=== PATIENT | female | born 1990 | race Caucasian/White ===

== ENCOUNTER 2016-03-16 17:30 | Emergency (ER) | payer OTHER ==
[~2016-03-16] VITALS: Ht 162.6 cm; Wt 83.5 kg
[~2016-03-16 17:30] MED LIST: ADVIL200 MG PO; ALBUTEROL0.09 MG/A1 INH; ALBUTEROL2.5 MG/3 M INH/SOL; BENTYL10 M1 PO; FLONASE120 SPRAY/ NASB; MASON NATURAL325 MG PO; NEBULIZER MACHINE INH; PREDNISONE 10MG10 MG PO; PREDNISONE 20MG20 MG PO; PRENATAL TABLE1 EAC2 PO; PRENATAL1 TA1 PO; ROBITUSSIN AC SY5 ML PO; VICODIN 5-3001 EACH PO; ZITHROMAX Z-PA250 M1 PO; ZOFRAN4 M2 PO; ZYRTEC10 MG PO; nebulizer machine INH
--- NOTE | 2016-03-16 19:08 | ED NECK/BACK PAIN COMPLAINT ---
History of Present Illness General Chief Complaint: Low Back Pain/Injury Stated Complaint: LOWER BACK PAIN Source: patient Exam Limitations: no limitations Vital Signs & Intake/Output Vital Signs & Intake/Output Vital Signs Date Time Temp Pulse Resp B/P Pulse O2 O2 Flow FiO2 Ox Delivery Rate 03/16 2127 98.6 88 18 126/68 100 Room Air 03/16 2039 97.8 03/16 1805 97.8 92 18 128/67 100 Room Air ED Intake and Output 03/17 0000 03/16 1200 Intake Total Output Total Balance Patient 184 lb Weight Allergies Coded Allergies: shellfish derived (Severe, ANAPHYLAXIS 01/17/16) Reconcile Medications Albuterol Sulfate (Albuterol Sulfate Hfa) 90 MCG HFA.AER.AD 2 PUFF INH Q4-6 PRN PRN SHORTNESS OF BREATH (Reported) 90 MCG PER PUFF Albuterol Sulfate 2.5 MG/3 ML (0.083 %) VIAL.NEB 1 Vial INH/HILARIO Q4P PRN asthma attack Vit No.130/Iron/FA ( Tablet) 27 MG IRON-800 MCG TABLET 1 TAB PO DAILY (Reported) Triage Note: PT TO ED FOR LOWER BACK PAIN, WORSE WITH MOVEMENT, PT CURRENTLY 15 WEEKS PREG, DENIES ANY VAG BLEEDING OR DISCHARGE. UNSURE OF ANY INJURY, NO LOSS OF B/B. Triage Nurses Notes Reviewed? yes Onset: Gradual Duration: day(s): (2) Timing: no prior history Quality/Severity: moderate Location: lumbar spine, paraspinous muscles Radiation: none Context: turning/bending Method of Injury: unknown Loss of Consciousness: no loss of consciousness Modifying Factors: immobilization, movement : Yes Patient currently breastfeeds: No HPI: Patient is a 25-year-old female who is currently 15 weeks presenting to the emergency Department chief complaint of low back pain is worse with movement. Pain started about 1-1/2-2 days ago. 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 Denies any nausea or vomiting fevers or chills chest pain or shortness of breath. No abdominal pain. No urinary frequency urgency or dysuria. Denies any vaginal discharge or bleeding. Her last visit with her SENIOR RADIATION THERAPIST was yesterday and everything was fine. (BOBBY JEREZ,SHAWN) Past History Travel History Traveled to [place] past 21 day No Medical History Any Pertinent Medical History? 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 No (SHAWN HER) Review of Systems Review of Systems Constitutional: Reports: no symptoms. Comments Review of systems: See HPI, All other systems negative. Constitutional, no chills fever or weight loss HEENT: No visual changes no sore throat no congestion Cardiovascular: No chest pain ,palpitation , orthopnea or ankle swelling Skin, no jaundice no rashes Respiratory: No dyspnea cough sputum or hemoptysis GI: No nausea no vomiting : No dysuria No hematuria Muscle skeletal: no neck pain, Neurologic: No numbness no confusion Psych: No stress anxiety Immunology: No splenectomy or history of AIDS (SHAWN HER) Physical Exam Physical Exam General Appearance: well developed/nourished, no apparent distress, alert, awake , comfortable Neck: normal inspection, supple, full range of motion Comments: Well-developed well-nourished person in no acute distress HEENT: Pupils equally round and reactive to light and accommodation. Nose is atraumatic. Neck: Supple, no lymphadenopathy, normal range of motion without pain or tenderness, no C-spine tenderness. Back: No CVA tenderness bilaterally. Tender to palpation in the lumbar paraspinal region. Limited range of motion of the back with forward flexion, backward extension and lateral bending. Cardiovascular: Regular rate and rhythms no murmurs rubs or gallops, normal JVP Respiratory: Chest nontender. No respiratory distress.breath sounds clear to auscultation bilaterally Abdomen: Soft, nontender nondistended, no appreciable organomegaly. Normal bowel sounds. No ascites, no rebound or guarding. Extremity: No edema, no calf tenderness to palpation, normal and equal pulses. Neuro: Alert oriented x3, motor sensory normal, patellar reflexes are 2+ bilaterally. Skin: No appreciable rash on exposed skin, skin is warm and dry. Psych: Mood and affect is normal, memory and judgment is normal. (SHAWN HER) Progress Differential Diagnosis: kidney stone, muscle strain, herniated disc, cauda equina Plan of Care: Orders Procedure Date/time Status URINALYSIS 03/16 1912 Complete Laboratory Tests 03/16/161953: Urine Color YEL, Urine Clarity CLEAR, Urine pH 7.0, Ur Specific [place] 1.020, Urine Protein NEG, Urine Ketones TRACE H, Urine Nitrite NEG, Urine Bilirubin NEG, Urine Urobilinogen 0.2, Ur Leukocyte Esterase NEG, Ur Microscopic EXAM NOT REQUIRED, Urine Hemoglobin NEG, Urine Glucose NEG Diagnostic Imaging: Viewed by Me: Ultrasound. Discussed w/RAD: Ultrasound. Radiology Impression: PATIENT: MAYO GRANT PRESENT AGE: 25 PATIENT ACCOUNT NO: [id number] : 91 LOCATION: [facility] ORDERING PHYSICIAN: SHAWN JEREZ SERVICE DATE: 03/16/16-2037 EXAM TYPE: US - US-RENAL/KIDNEY EXAMINATION: US RETROPERITONEAL COMPLETE (RENAL) CLINICAL INFORMATION: Back pain, question kidney stone. COMPARISON: None. TECHNIQUE: Real -time imaging of the kidneys and bladder. FINDINGS: RIGHT KIDNEY: 10.1 x 4.2 x 5.2 cm (SAG x AP x TRV). The kidney is normal in size, contour, and echogenicity. Renal cortical thickness is normal. No calculi or focal parenchymal lesions. No hydronephrosis. LEFT KIDNEY: 11.3 x 5.8 x 4.5 cm (SAG x AP x TRV). The kidney is normal in size, contour, and echogenicity. Renal cortical thickness is normal. No calculi or focal parenchymal lesions. No hydronephrosis. BLADDER: Well-distended and normal. Bilateral ureteral jets are not demonstrated. Within the uterus, single live intrauterine gestation is demonstrated with a heart rate of 146 bpm. IMPRESSION: Unremarkable renal ultrasound. No evidence for obstruction.. Comments: Patient given dose of Tylenol arrival. We will assess urinalysis. Patient was informed of urinalysis. Still complaining of pain after Tylenol. We will get a renal ultrasound although unlikely to be kidney stone. Patient informed of negative ultrasound. Likely muscle strain. Patient will use warm compresses and Tylenol. She'll follow-up with SENIOR RADIATION THERAPIST tomorrow. Discussed with Dr. Esquivel and he agrees with plan. (SHAWN HER) Departure Departure Time of Disposition: 2054 Disposition: HOME OR SELF CARE Condition: Stable Clinical Impression Primary Impression: Back pain Qualifiers: Back pain location: low back pain Chronicity: unspecified Back pain laterality: bilateral Sciatica presence: without sciatica Qualified Code: M54.5 - Low back pain Referrals: JOVANY LEYVA APRN (PCP/Family) Additional Instructions: Follow-up with your primary care physician call to make an appointment. Warm compresses to affected area. Tylenol may, as directed. Return for worsening symptoms or concerns. Departure Forms: Customer Survey General Discharge Information (SHAWN HER) PA/FILLER AND TRIMMER Co-Sign Statement Statement: ED Attending supervision documentation- [] I saw and evaluated the patient. I have also reviewed all the pertinent lab results and diagnostic results. I agree with the findings and the plan of care as documented in the PA's/FILLER AND TRIMMER's documentation. [x] I have reviewed the ED Record and agree with the PA's/FILLER AND TRIMMER's documentation. [] Additions or exceptions (if any) to the PAs/FILLER AND TRIMMER's note and plan are summarized below: [] (COMPA ARGUETA,TABITHA Sauceda)
--- NOTE | 2016-03-16 21:08 | ULTRASOUND REPORT ---
EXAMINATION: US RETROPERITONEAL COMPLETE (RENAL) CLINICAL INFORMATION: Back pain, question kidney stone. COMPARISON: None. TECHNIQUE: Real-time imaging of the kidneys and bladder. FINDINGS: RIGHT KIDNEY: 10.1 x 4.2 x 5.2 cm (SAG x AP x TRV). The kidney is normal in size, contour, and echogenicity. Renal cortical thickness is normal. No calculi or focal parenchymal lesions. No hydronephrosis. LEFT KIDNEY: 11.3 x 5.8 x 4.5 cm (SAG x AP x TRV). The kidney is normal in size, contour, and echogenicity. Renal cortical thickness is normal. No calculi or focal parenchymal lesions. No hydronephrosis. BLADDER: Well-distended and normal. Bilateral ureteral jets are not demonstrated. Within the uterus, single live intrauterine gestation is demonstrated with a heart rate of 146 bpm. IMPRESSION: Unremarkable renal ultrasound. No evidence for obstruction..
[2016-03-16 21:28] VITALS: BP 126/68
== END 2016-03-16 21:30 ==
LOC: ERH 17:30
DX: M54.5 Low back pain (principal)
CPT/HCPCS: 76775; 81003